=== PATIENT | male | born 1995 | race Two or more races ===

== ENCOUNTER 2022-03-16 08:00 | Outpatient (CLI) | payer OTHER | END 2022-03-16 08:05 | disposition home or self-care (01) | LOC: PPH VACUNA 08:00 | PROVIDERS: ATTEND Emergency Medicine Pediatric Emergency Medicine | DX: Z23 Encounter for immunization (principal) ==

== ENCOUNTER 2022-03-20 14:48 | Emergency (ER) | payer OTHER ==
[~2022-03-20] VITALS: Ht 170.2 cm; Wt 76.2 kg
[2022-03-20] MEDS ORDERED: DICLOFENAC SODI75 MG PO (17:28)
== END 2022-03-20 18:17 | disposition home or self-care (01) ==
LOC: ER 14:48
DX: S92.511A Displaced fracture of proximal phalanx of right lesser toe(s), initial encounter for closed fracture (principal); X58.XXXA Exposure to other specified factors, initial encounter; Y93.89 Activity, other specified; Y92.89 Other specified places as the place of occurrence of the external cause; Y99.9 Unspecified external cause status

== ENCOUNTER 2022-05-24 08:19 | Emergency (ER) | payer OTHER ==
[~2022-05-24] VITALS: Ht 170.2 cm; Wt 77.1 kg
[~2022-05-24 08:19] MED LIST: DICLOFENAC SODI75 MG PO
[2022-05-24] MEDS ORDERED: ENALAPRIL MALEAT5 MG PO (12:05)
== END 2022-05-24 14:11 | disposition home or self-care (01) ==
LOC: ER 08:19
DX: I10 Essential (primary) hypertension (principal)